=== PATIENT | male | born 1970 | race Caucasian/White ===

== ENCOUNTER → 2018-03-16 09:13 | Outpatient (CLI) | payer MEDICAID ==
--- NOTE | 2018-03-20 12:11 | EC ---
PATIENT:EUSEBIA HAWLEY DATE OF SERVICE: 03/16/18 SEX: M MEDICAL RECORD: [id number] DATE OF : [birth year] [facility] AGE OF PATIENT: 47 ADMISSION DATE: 03/16/18 REFERRING PHYSICIAN: INTERPRETING PHYSICIAN: ESTEBAN TEJADA MD ECHOCARDIOGRAM REPORT ECHO CHARGES 4 ECHO COMPLETE Date: 03/16/18 CLINICAL DIAGNOSIS: PERIPHERAL ARTERY DZ. LEFT LEG ECHOCARDIOGRAPHIC MEASUREMENTS (adult normal given) AC root (d.<3.7cm) 3.6 cm LV Septum d (<1.2 cm> 2.2 cm Valve Excursion 2.1 cm LV Septum (systole) 2.4 cm Left Atria (s.<4.0cm> 4.6 cm LVPW d(<1.2cm) 1.4 cm RV (d.<2.3cm) 2.9 cm LVPW (sytole) 1.9 cm LV diastole(<5.6CM) 4.8 cm MV E-F(>70mm/sec) cm LV systole 3.4 cm LVOT Diameter 2.0 cm MV exc.(>10mm) cm Est.ejection fraction (50-75%) % DOPPLER: LVIT cm/sec A 56.0 cm/sec E 96.0 cm/sec LA cm/sec RVSP 22.0 mmHg LVOT 73.0 cm/sec AOP1/2T m/s Asc. Ao 114 cm/sec RVOT 57.0 cm/sec RA cm/sec PA 74.0 cm/sec AV Gradient Peak 5.2 mmHg AV Mean 2.7 mmHg AV Area 1.8 cm MV Gradient Peak 2.8 mmHg MV Mean 1.2 mmHg MV Area cm COMMENTS: Special Needs Librarian: Tito WEBBOE Needle Maker: 1 Dr. Tejada TAPE# PACS Pericardial Effusion N DATE OF SERVICE: 03/16/2018 FINDINGS: 1. Left ventricular chamber size is within normal limits. Left ventricular systolic function is normal. Overall ejection fraction is estimated at 55%. 2. Left atrium is enlarged at 4.6 cm. Right atrium and right ventricle chamber sizes are [id number] dilated. 3. Valvular structures have normal structure and motion. 4. Doppler interrogation reveals mild aortic insufficiency, mild mitral regurgitation, and mild tricuspid regurgitation. No other valvular ECHOCARDIOGRAM REPORT [id number] GANOUS,EUSEBIA insufficiency or stenosis. Pulmonary systolic pressure is estimated at 22 mmHg. 5. No evidence of pericardial effusion or left ventricular thrombus. TRANSINT:[id number] Voice Confirmation ID: [id number] DOCUMENT ID: [id number] ESTEBAN TEJADA MD at 1211 CC: [id number] DICTATION DATE: 03/17/18 1033 HEATING ENGINEER: 03/17/18 1108 DEP CLI 03/16/18 [id number] [place] [address]
== END | disposition home or self-care (01) ==
LOC: D.CN 09:13 → D.ECHO 10:35 → D.CT 12:30
DX: I70.212 Atherosclerosis of native arteries of extremities with intermittent claudication, left leg (principal)